=== PATIENT | male | born 1995 | race Caucasian/White ===

== ENCOUNTER 2020-04-20 08:56 | Day surgery (SDC) | payer OTHER ==
[~2020-04-20] VITALS: Ht 185.4 cm; Wt 115.9 kg
[~2020-04-20 08:56] MED LIST: ACET650S21 PO; FENTANYL PF 250 MCG/5ML ONE; MIDAZOLAM 1 MG/ML, 2ML ONE
[2020-04-20] MEDS ORDERED: PROPOFOL 10 MG/ML, 20ML ONE (08:59)
[2020-04-20] MEDS ORDERED: CEFOTETAN 2 GM ONE (08:59)
[2020-04-20] MEDS ORDERED: NEOSTIGMINE 1 MG/ML, 10ML ONE (08:59)
[2020-04-20] MEDS ORDERED: ONDANSETRON 2MG/ML, 2ML ONE (08:59)
[2020-04-20] MEDS ORDERED: GLYCOPYRROLATE 0.2MG/1ML, 5ML ONE (08:59)
[2020-04-20] MEDS ORDERED: ROCURONIUM 10MG/ML,5ML ONE (08:59)
[2020-04-20] MEDS ORDERED: CHLORHEXIDINE 15 ML UDC MM STA (09:09)
[2020-04-20] MEDS ORDERED: CHLORHEXIDINE 15 ML UDC ONE (09:13)
[2020-04-20 09:20] VITALS: BP 116/80
[2020-04-20] MEDS ORDERED: LACTATED RINGERS 1,000 ML IV SCH (09:30)
[2020-04-20] MEDS ORDERED: BUPIVACAINE/PF 0.5% ONE (09:59)
[2020-04-20] MEDS ORDERED: EPINEPHRINE 1 MG/ML, 1ML ONE (09:59)
[2020-04-20] MEDS ORDERED: OXYcodone 5 MG/5 ML ORAL.SOL UDC PO PRN (10:00)
[2020-04-20] MEDS ORDERED: ACETAMINOPHEN 325 MG TABLET PO PRN (10:00)
[2020-04-20] MEDS ORDERED: ONDANSETRON 2MG/ML, 2ML IVPush PRN (10:00)
[2020-04-20] MEDS ORDERED: LABETALOL 5MG/ML, 20ML IV PRN (10:00)
[2020-04-20] MEDS ORDERED: HYDROmorphone 1 MG/ML, 1ML INJ IVPush PRN (10:00)
[2020-04-20] MEDS ORDERED: morphine SULFATE 10 MG/ML, 1ML IVPush PRN (10:00)
[2020-04-20] MEDS ORDERED: hydrALAzine 20 MG/ML, 1ML IV PRN (10:00)
[2020-04-20] MEDS ORDERED: MEPERIDINE/PF 25MG/0.5ML IVPush PRN (10:00)
[2020-04-20] MEDS ORDERED: FENTANYL PF 100 MCG/2ML ONE ×3 (10:27→11:12)
[2020-04-20] MEDS ORDERED: ACETAMINOPHEN 650 MG/20.3 ML UDC ONE (10:44)
[2020-04-20] MEDS ORDERED: OXYcodone 5 MG/5 ML ORAL.SOL UDC ONE (10:45)
[2020-04-20] MEDS: FENTANYL PF 100 MCG/2ML IV PRN ×3 (10:45→11:20)
[2020-04-20] MEDS ORDERED: IBUP-1223 PO (10:47)
[2020-04-20] MEDS ORDERED: OXYC5TAB2 PO (10:47)
[2020-04-20] MEDS ORDERED: ACET-1600 PO (10:47)
== END 2020-04-20 12:45 | disposition home or self-care (01) ==
LOC: OUT 08:56 → EDSTATUS 11:00 → OUT 12:45
PROVIDERS: ATTEND Surgery
DX: K80.10 Calculus of gallbladder with chronic cholecystitis without obstruction (principal); F17.210 Nicotine dependence, cigarettes, uncomplicated; Z79.899 Other long term (current) drug therapy; Z88.8 Allergy status to other drugs, medicaments and biological substances; Z83.3 Family history of diabetes mellitus; Z80.8 Family history of malignant neoplasm of other organs or systems
CPT/HCPCS: 47562; 88304; J0171; J2250; J2405; J2704; J2710; J3010; J7120